=== PATIENT | male | born 1980 | race Caucasian/White ===

== ENCOUNTER 2022-11-20 20:20 | Emergency (ER) | payer OTHER, SELFPAY ==
[2022-11-20] VITALS (8 sets, daily range): BP systolic 113–138; BP diastolic 71–89; PULSE 102–137; RESP 14–32; TEMP 36.8; O2SAT 95–100; BMI 27.1
--- NOTE | 2022-11-20 20:22 | XR_ITS ---
PROCEDURE INFORMATION: Exam: XR Chest Exam date and time: 11/20/2022 8:42 PM Age: 42 years old Clinical indication: Cough and shortness of breath; Additional info: SOA cough TECHNIQUE: Imaging protocol: Radiologic exam of the chest. Views: 1 view. COMPARISON: No relevant prior studies available. FINDINGS: Lungs: There is mild prominence of the perihilar lung markings which could be related to crowding. Linear atelectasis versus scarring in the left lower lobe Pleural spaces: No evidence of pleural effusion, pneumothorax, or pleural thickening in the visualized pleural spaces. Heart/Mediastinum: No evidence of mediastinal widening or cardiac silhouette enlargement; the mediastinum and heart appear within normal limits for contour and size. Diaphragm: There is elevation of the right hemidiaphragm. Bones/joints: No evidence of acute osseous abnormalities within the visualized portions of the thoracic spine and ribs. Osseous structures appear appropriate for patient age. Soft tissues: Upper abdominal surgical clips of unclear etiology. Gastrointestinal tract: There is mild gaseous distention of partially visualized bowel loops. IMPRESSION: No dense parenchymal consolidation, pleural effusion, or pneumothorax.
--- NOTE | 2022-11-20 20:27 | ECG_ITS ---
APPROVED REPORT Exam: Resting ECG HR:127 bpm ECG Measurements Heart Rate 127 AXES WY 119 P 43 QRSd 78 QRS 81 QT 302 T 71 QTc 377 Conclusion SINUS TACHYCARDIA WITH SHORT WY INTERVAL MODERATE ST DEPRESSION [0.05+ mV ST DEPRESSION] ABNORMAL ECG UNCONFIRMED REPORT Electronically signed by : Leodan Parsons MD 11/21/2022 11:01:55
--- NOTE | 2022-11-20 20:31 | PC.NURSE ---
RAD in room at this time.
[2022-11-20 20:37] LABS: Basophils # 0.1 K/mm3 (0-0.2); Eosinophils # 0.2 K/mm3 (0.0-0.4); Eosinophils % 1.8 % (0.1-12.0); Hematocrit 36.6 % (42.0-52.0); Hemoglobin 13.2 g/dL (14.1-18.0); Lymphocytes # 5.2 K/mm3 (0.7-4.5); Lymphocytes % 48.2 % (10-50); Mean Corpuscular HGB Conc 36.1 g/dL (31.8-35.4); Mean Corpuscular Hemoglobin 31.4 pg (27.0-31.2); Mean Corpuscular Volume 86.8 fl (80-94); Mean Platelet Volume 7.6 fl (7.4-10.4); Monocytes # 0.4 K/mm3 (0.1-1.0); Monocytes % 3.9 % (1.7-9.3); Neutrophils # 4.9 K/mm3 (1.8-7.8); Neutrophils % 45.1 % (37.0-80.0); Platelet Count 447 K/mm3 (142-424); Red Blood Count 4.21 M/mm3 (4.60-6.20); Red Cell Distribution Width 13.1 % (11.5-17.5); White Blood Count 10.8 K/mm3 (4.8-10.8)
--- NOTE | 2022-11-20 20:40 | PC.NURSE ---
Called Respiratory for Neb treatment at this time.
[2022-11-20 20:41] LABS: Chloride 98 mmol/L (98-107); Potassium 3.7 mmoL/L (3.5-5.1); Sodium 135 mmol/L (136-145)
[2022-11-20 20:43] LABS: Blood Urea Nitrogen 18 mg/dl (9-20); Creatinine Clearance Estimated 76 mL/min (50-200); Estimated Glomerular Filt Rate 56 ml/min (>60); GFR (African American) 67 ML/MIN (>60)
[2022-11-20 20:44] LABS: Alanine Aminotransferase 56 U/L (12-78); Albumin Level 4.9 g/dl (3.5-5.0); Albumin/Globulin Ratio 1.6 (1.1-1.8); Alkaline Phosphatase 103 U/L (38-126); Anion Gap 20.7 mEq/L (5-15); Aspartate Amino Transferase 38 U/L (17-59); Bilirubin,Total 0.4 mg/dl (0.2-1.3); Calcium 9.6 mg/dl (8.4-10.2); Carbon Dioxide 20 mmol/L (22.0-30.0); Globulin 3.1 g/dL (1.3-3.2); Glucose 170 mg/dl (74-100)
--- NOTE | 2022-11-20 20:49 | PC.NURSE ---
in room talking with patient at this time.
[2022-11-20 20:51] LABS: D-Dimer 0.62 ug/mL (0.0-0.5)
[2022-11-20 20:53] LABS: Lactic Acid 3.3 mmol/L (0.7-2.1)
[2022-11-20 20:59] LABS: VBG Base Excess -4.7 mmol/L (-2.4-2.3); VBG HCO3 18.5 mmol/L (23-30); VBG Oxygen Saturation 98.8 % (50-70); VBG Total CO2 19.3 mmol/L (23-27)
--- NOTE | 2022-11-20 21:00 | HMH.EDGENADL ---
Discharge Plan Disposition Patient Disposition: Home, Self-Care Condition: Good Prescriptions Prescriptions: No Action atorvastatin 20 mg tablet 20 mg PO DAILY albuterol sulfate 2.5 mg /3 mL (0.083 %) solution for nebulization 2.5 mg inhalation Q6H Patient Comments: INHALE 1 UNIT NEBULIZATION ROUTE EVERY 6-8 HOURS NEEDED ondansetron HCl 4 mg tablet 4 mg PO Q6H PRN (Reason: Nausea) Patient Comments: TAKE 1 TABLET BY MOUTH THREE TIMES DAILY NEEDED lidocaine 5 % adhesive patch,medicated 1 patch transdermal DAILY PRN (Reason: Pain) Patient Comments: APPLY 1 PATCH BY TOPICAL ROUTE EVERY DAY MAY WEAR UP TO 24 HOURS fluticasone propion-salmeterol [Advair Diskus] 500-50 mcg/dose blister with device 1 inh INHALATION DAILY diclofenac sodium 75 mg tablet,delayed release (DR/EC) 75 mg PO DAILY hydrochlorothiazide 25 mg tablet 25 mg PO DAILY benazepril 40 mg tablet 40 mg PO DAILY Patient Comments: TAKE ONE TABLET BY MOUTH EVERY DAY loratadine 10 mg tablet 10 mg PO DAILY Patient Comments: TAKE 1 TABLET BY MOUTH EVERY DAY cyclobenzaprine 5 mg tablet 5 mg PO Q8HP PRN (Reason: Muscle Spasm) Patient Comments: TAKE 1 TABLET BY MOUTH EVERY 12 HOURS FOR 15 DAYS Spiriva Respimat 2.5 mcg/actuation mist 1 puff INHALATION DAILY Anoro Ellipta 62.5-25 mcg/actuation blister with device 1 inh INHALATION DAILY Patient Comments: INHALE 1 PUFF BY MOUTH EVERY DAY Referrals Follow up/Referrals: Felipe Keen [Primary Care Provider] - See instructions Activity Restrictions/Add. Instructions Additional Instructions/Restrictions: You were evaluated in the emergency department today. Please keep your close follow-up with pulmonology. Use your oxygen at home as needed. Continue using your inhalers at home. You have incidental findings of an abnormal appearing thyroid on imaging, for which we recommend routine outpatient ultrasound. Your thyroid studies are within normal limits today, so I do not think this needs to happen on an emergent basis. He also have a pulmonary nodule. Please return to the emergency department for any new or worsening symptoms. Clinical Impressions Clinical Impression: Chronic hypoxemic respiratory failure, Elevated lactic acid level, Abnormal imaging of thyroid, Pulmonary nodule Instructions Patient Instructions: DI for Respiratory Failure Discharge ED Provider: Armenta,Lizabeth N General Adult HPI <Rene Cr MD - Last Filed: 11/21/22 21:55> General Chief complaint: Shortness of Breath/Dyspnea Stated complaint: SOA Time Seen by Provider: 11/20/22 20:22 Mode of Arrival: Wheelchair Source of Information: Patient and Spouse Limitations: No Limitations Description of Symptoms (Recalled from ER Triage Doc. 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 Reports that he hit his inhaler 8 times prior to arrival without relief. Patient denies fevers at home. Related Data Home Medications Medication Instructions Recorded Confirmed albuterol sulfate 2.5 mg/3 mL 2.5 mg inhalation Q6H 11/20/22 11/20/22 (0.083 %) solution for nebulization atorvastatin 20 mg tablet 20 mg PO DAILY 11/20/22 11/20/22 benazepril 40 mg tablet 40 mg PO DAILY 11/20/22 11/20/22 cyclobenzaprine 5 mg tablet 5 mg PO Q8HP PRN Muscle Spasm 11/20/22 11/20/22 diclofenac sodium 75 mg 75 mg PO DAILY 11/20/22 11/20/22 tablet,delayed release fluticasone 500 mcg-salmeterol 50 1 inh inhalation DAILY 11/20/22 11/20/22 mcg/dose blistr powdr for inhalation (Advair Diskus) hydrochlorothiazide 25 mg tablet 25 mg PO DAILY 11/20/22 11/20/22 lidocaine 5 % topical patch 1 patch transdermal DAILY PRN Pain 11/20/22 11/20/22 loratadine 10 mg tablet 10 mg PO DAILY 11/20/22 11/20/22 ondansetron HCl 4 mg tablet 4 mg PO Q6H PRN Nausea 11/20/22 11/20/22 tiotropium bromide 2.5
[2022-11-20 21:02] LABS: VBG PCO2 24.3 mmol/L (35-51)
--- NOTE | 2022-11-20 21:05 | CT_ITS ---
PROCEDURE INFORMATION: Exam: CTA Chest With Contrast Exam date and time: 11/20/2022 9:29 PM Age: 42 years old Clinical indication: Hyperventilation and tachypnea and other: Tachycardia; Additional info: Tachypnea, tachycardia, hyperventilation TECHNIQUE: Imaging protocol: Computed tomographic angiography of the chest with contrast. Exam focused on the arteries. 3D rendering (Not supervised by radiologist): MIP and/or 3D reconstructed images were created by the technologist. Radiation optimization: All CT scans at this facility use at least one of these dose optimization techniques: automated exposure control; mA and/or kV adjustment per patient size (includes targeted exams where dose is matched to clinical indication); or iterative reconstruction. Contrast material: ISOVUE 370; Contrast volume: 70 ml; Contrast route: INTRAVENOUS (IV); REPORTING DATA: Count of CT and Cardiac NM exams in prior 12 months: This patient has received 0 known CTs and 0 known cardiac nuclear medicine studies in the 12 months prior to the current study. COMPARISON: CR XR CHEST PORTABLE 11/20/2022 8:42 PM FINDINGS: Tubes, catheters and devices: Perigastric surgical clips noted. Pulmonary arteries: There is fair opacification of the pulmonary arterial tree. No central pulmonary arterial filling defect is seen. Aorta: Unremarkable. No aortic aneurysm. No aortic dissection. Thyroid: There is heterogeneity of the thyroid gland for which nonemergent thyroid ultrasound should be considered. Lungs: 6 mm right upper lobe subpleural pulmonary nodule (image 26 series 5). For patients at low risk (minimal or absent history of smoking and of other known risk factors), no routine follow-up is indicated. For patients at high risk (history of smoking or of other known risk factors), consider optional CT Chest at 12 months. (Reference: Etta). Scattered areas of bronchial wall thickening which are likely chronic inflammatory. A few areas of subpleural reticulation are noted, nonspecific. Scarring versus atelectasis of the lung bases. Pleural spaces: Unremarkable. No pneumothorax. No pleural effusion. Heart: Unremarkable. No cardiomegaly. No pericardial effusion. Lymph nodes: Unremarkable. No enlarged lymph nodes. Bones/joints: There is exaggeration of the spinal curvature. Soft tissues: There is bilateral gynecomastia. IMPRESSION: 1. There is fair opacification of the pulmonary arterial tree. No central pulmonary arterial filling defect is seen. 2. No dense parenchymal consolidation, pleural effusion, or pneumothorax. 3. 6 mm right upper lobe subpleural pulmonary nodule (image 26 series 5). For patients at low risk (minimal or absent history of smoking and of other known risk factors), no routine follow-up is indicated. For patients at high risk (history of smoking or of other known risk factors), consider optional CT Chest at 12 months. (Reference: Etta). 4. There is heterogeneity of the thyroid gland for which nonemergent thyroid ultrasound should be considered. REFERENCES: Etta Tomlinson, et al. Guidelines for Management of Incidental Pulmonary Nodules Detected on CT Images: From the Fleischner Society 2017. Radiology. 2017;284(1):228-243.
[2022-11-20 21:18] LABS: Troponin I < 0.01 ng/ml (0.00-0.034)
--- NOTE | 2022-11-20 21:23 | PC.NURSE ---
Blood cultures x 2 collected.
--- NOTE | 2022-11-20 22:39 | PC.NURSE ---
in room talking with patient at this time
[2022-11-20 23:22] LABS: Lactic Acid 1.8 mmol/L (0.7-2.1)
[2022-11-20 23:33] LABS: T4 (Thyroxine) 7.4 ug/dl (5.53-11.0)
[2022-11-20 23:38] LABS: Troponin I < 0.01 ng/ml (0.00-0.034)
[2022-11-20 23:46] LABS: Thyroid Stimulating Hormone 2.58 uIU/mL (0.465-4.68)
--- NOTE | 2022-11-20 23:55 | PC.NURSE ---
in room talking with patient at this time
[2022-11-21] VITALS: BP 113/77; PULSE 100; RESP 17; O2SAT 97
--- NOTE | 2022-11-21 00:01 | PC.NURSE ---
Called [facility] about getting a portable O2 unit for the pt. Left msg for Deandre chang. DEWAYNE
--- NOTE | 2022-11-21 00:24 | PC.NURSE ---
Hari from [facility] called back. Asked to fax over paperwork and states he will be here in about 30 mins with portable unit for the pt. CR
[2022-11-21 00:30] VITALS: BP 119/80; PULSE 91; RESP 17; O2SAT 98
[2022-11-21 00:38] LABS: Reflex Lactic Add Lactic Reflex
[2022-11-21 01:06] VITALS: BP 128/74; PULSE 98; RESP 18; TEMP 36.7; O2SAT 98
== END 2022-11-21 01:22 | disposition home or self-care (01) ==
PROVIDERS: Emergency Medicine; Emergency Provider Emergency Medicine; PCP Pediatrics
DX: J96.21 Acute and chronic respiratory failure with hypoxia (principal); R74.02 Elevation of levels of lactic acid dehydrogenase [LDH]; R94.6 Abnormal results of thyroid function studies; R91.1 Solitary pulmonary nodule; R00.0 Tachycardia, unspecified; J44.9 Chronic obstructive pulmonary disease, unspecified; K21.9 Gastro-esophageal reflux disease without esophagitis
CPT/HCPCS: 71045; 71275; 80053; 82803; 83605; 84436; 84443; 84484; 85025; 85378; 87040; 93005; 96361; 96374; 99285; Q9967